=== PATIENT | female | born 1975 | race Caucasian/White ===

== ENCOUNTER 2017-02-10 19:36 | Emergency (ER) | payer OTHER ==
[~2017-02-10] VITALS: Ht 170.2 cm; Wt 113.7 kg
[~2017-02-10 19:36] MED LIST: BUPR-79 PO; CETI10TA84 PO; DICY10CA12 PO; DOXE10CA PO; IBUP-1428 PO; OXYB10TA PO; PSEU30TA20 PO
[2017-02-10 19:39] VITALS: TEMP 36.9; Ht 170.2 cm; Wt 113.7 kg
[2017-02-10] MEDS ORDERED: SODIUM CHLORIDE 0.9% 1000ML 1,000 ML IV STA (19:54)
[2017-02-10] MEDS ORDERED: ONDANSETRON INJ 2 MG/ML 2 ML VIAL IV STA (19:54)
--- NOTE | 2017-02-10 20:19 | DIAGNOSTIC IMAGING REPORT ---
CHEST ONE VIEW PORTABLE HISTORY: 41 years-old Female nausea acute nausea COMPARISON: Chest radiograph 01/05/2014 TECHNIQUE: Portable upright AP view of the chest FINDINGS: Patient is slightly rotated to the right. Cardiomediastinal and hilar silhouettes are within normal limits. No pneumothorax, pleural effusion or focal airspace consolidation. No overt pulmonary edema. Bones of the chest are grossly intact. Slight haziness in the left lung compared to the right is favored to be artifactual. Minimal subsegmental atelectasis of the left lung base. IMPRESSION: No acute cardiopulmonary process. The above report was generated using voice recognition software. It may contain grammatical, syntax or spelling errors. Electronically signed by: Kieran Dodd M.D. 02/10/2017 8:18 PM Dictated Date/Time: 02/10/2017 8:17 PM
[2017-02-10] MEDS ORDERED: MAGNTAB10 PO (20:23)
[2017-02-10] MEDS ORDERED: MONT1TAB3 PO (20:23)
[2017-02-10] MEDS ORDERED: MULT-513 PO (20:23)
[2017-02-10] MEDS ORDERED: IBUP-1428 PO (20:23)
[2017-02-10] MEDS ORDERED: ZOLM1TAB3 PO (20:23)
[2017-02-10] MEDS ORDERED: ONDA8TAB6 PO (20:23)
[2017-02-10] MEDS ORDERED: CETI10TA84 PO (20:23)
[2017-02-10] MEDS ORDERED: VNTHFA/IN INH (20:23)
[2017-02-10] MEDS ORDERED: LORA-741 PO (20:23)
[2017-02-10] MEDS ORDERED: OXYC-57 PO (20:23)
[2017-02-10] MEDS ORDERED: BIOF500C2 PO (20:23)
[2017-02-10] MEDS ORDERED: CHOL100027 PO (20:23)
[2017-02-10] MEDS ORDERED: CYAN1SUB12 PO (20:23)
[2017-02-10 20:34] LABS: BASO % 0.4 %; BASO ABS # 0.03 K/uL (0-0.2); COMPLETE YES; EOS % 0.6 %; HEMATOCRIT 36.3 % (37-47); IG% 0.3 %; LYMPH % 14.7 %; LYMPH ABS # 1.16 K/uL (1.2-3.4); MEAN CELL VOLUME 84.6 fL (80-100); MEAN CORPUSCULAR HEMOGLOBIN 29.8 pg (25-34); MEAN CORPUSCULAR HGB CONC 35.3 g/dl (32-36); MONO % 7.1 %; NEUT % 76.9 %; PLATELET COUNT 313 K/uL (130-400); RED BLOOD COUNT 4.29 M/uL (4.2-5.4); WHITE BLOOD COUNT 7.87 K/uL (4.8-10.8)
[2017-02-10 20:50] LABS: ALT/SGPT 21 U/L (12-78); BLOOD UREA NITROGEN 9 mg/dl (7-18); BUN/CREATININE RATIO 15.1 (10-20); CALCIUM 8.4 mg/dl (8.5-10.1); CARBON DIOXIDE 27 mmol/L (21-32); CHLORIDE 107 mmol/L (98-107); CREATININE 0.62 mg/dl (0.60-1.20); GLUCOSE 99 mg/dl (70-99); POTASSIUM 3.3 mmol/L (3.5-5.1); SODIUM 141 mmol/L (136-145)
[2017-02-10] MEDS ORDERED: KETOROLAC TROMETHAMINE 30 MG/ML VIAL IV STA (20:51)
[2017-02-10 20:53] LABS: ALKALINE PHOSPHATASE 72 U/L (45-117); AST/SGOT 18 U/L (15-37)
[2017-02-10] MEDS ORDERED: ONDA4TAB65 PO (21:33)
[2017-02-10 21:51] VITALS: BP 152/94; PULSE 73; O2SAT 95
[2017-02-10] MEDS ORDERED: ONDANSETRON HOME PACK 4MG OD TAB PO ONE (22:00)
--- NOTE | 2017-02-10 22:52 | EMERGENCY ROOM VISIT NOTE ---
History Report prepared by Rahul: Thuan Aguirre Under the Supervision of: Dr. German Stahl D.O. First contact with patient: 19:44 Chief Complaint: NAUSEA Stated Complaint: POST OP CHILLS,NAUSEA History of Present Illness The patient is a 41 year old female who presents to the Emergency Room with complaints of constant lightheadedness beginning one hour ago. She also complains of nausea and hot flashes. She had carpal tunnel release surgery this morning on her right elbow. The patient has had similar symptoms before in the past with anesthesia with her previous hysterectomy. She states that her right hand feels swollen. She denies any chest pain, or SOB. No vomiting. No weakness or numbness in arms or legs. No fevers of of 100.4. Patient notes she does get this way after surgery about 50% of time. Source of History: patient Onset: 1 hour ago Quality: other (lightheadedness) Timing: constant Associated Symptoms: + nausea, No chest pain, No SOB Note: Additional symptoms: hot flashes. Review of Systems See HPI for pertinent positives & negatives. A total of 10 systems reviewed and were otherwise negative. Past Medical & Surgical Surgical Problems: (1) History of cholecystectomy (2) History of hernia repair Family History No pertinent family history Social History Smoking Status: Never Smoker Alcohol Use: none Drug Use: none Marital Status: Occupation Status: unemployed Current/Historical Medications Scheduled Albuterol Hfa (Ventolin Hfa), 2 PUFFS INH Q4 Bioflavonoid Products (Vitamin C), 1 TAB PO DAILY Cholecalciferol (Vitamin D 1000 Unit), 1,000 INTER.UNIT PO DAILY Cyanocobalamin (Vitamin B-12), 2,500 MCG PO DAILY Ibuprofen (Motrin), 800 MG PO TIDM Magnesium Oxide (Mg Supplement (Mag-200), 200 MG PO DAILY Multivitamins/Minerals (Mvi With Minerals), 1 TAB PO DAILY Omeprazole (Prilosec), 20 MG PO BID Ondansetron Hcl (Zofran), 4 MG PO TID Zolmitriptan (Zomig), 5 MG PO PRN Scheduled PRN Cetirizine (Zyrtec), 10 MG PO DAILY PRN for Seasonal Allergies Lorazepam (Ativan), 0.5 MG PO Q6H PRN for Anxiety Ondansetron Hcl (Zofran), 8 MG PO TIDM PRN for Nausea Oxycodone/Acetaminophen 5MG/325MG (Percocet 5MG/325MG), 1 TABLET PO Q4H PRN for Pain Allergies Coded Allergies: Amoxicillin (Verified Allergy, Unknown, ITCHING, 01/05/14) Clavulanic Acid (Verified Allergy, Unknown, ITCHING, 01/05/14) Latex (Verified Allergy, Unknown, UNK, 01/05/14) Physical Exam Vital Signs Date Time Temp Pulse Resp B/P (MAP) Pulse Ox O2 Delivery O2 Flow Rate FiO2 02/10/17 21:51 73 16 152/94 95 02/10/17 19:39 36.9 72 18 161/96 98 Room Air Physical Exam GENERAL: Sitting up in bed, disheveled, minimal distress. EYE EXAM: normal conjunctiva. OROPHARYNX: no exudate, no erythema, lips, buccal mucosa, and tongue normal and mucous membranes are moist NECK: supple, no nuchal rigidity, no adenopathy, non-tender LUNGS: Clear to auscultation. Normal chest wall mechanics HEART: no murmurs, S1 normal and S2 normal ABDOMEN: abdomen soft, non-tender, normo-active bowel sounds, no masses, no rebound or guarding. BACK: Back is symmetrical on inspection and there is no deformity, no midline tenderness, no CVA tenderness. SKIN: no rashes and no bruising UPPER EXTREMITIES: RUE in a splint. Outside dressing/JAYDEN bandage removed. Radial pulse bounding 2/4. Able to abduct digits. Compartments are soft in the humerus and forearm. LOWER EXTREMITIES: No pitting edema. NEURO EXAM: Normal sensorium, cranial nerves II-XII grossly intact, normal speech, no gross weakness of legs. Medical Decision & Procedures ER Provider Diagnostic Interpretation: Radiology results as stated below per my review and the radiologist's interpretation: CHEST ONE VIEW PORTABLE FINDINGS: Patient is slightly rotated to the right. Cardiomediastinal and hilar silhouettes are within normal limits. No pneumothorax, pleural effusion or focal airspace consolidation. No overt pulmonary edema. Bones of the chest are grossly intact. Slight haziness in the left lung compared to the right is favored to be artifactual. Minimal subsegmental atelectasis of the left lung base. IMPRESSION: No acute cardiopulmonary process. The above report was generated using voice recognition software. It may contain grammatical, syntax or spelling errors. Electronically signed by: Kieran Dodd M.D. 02/10/2017 8:18 PM Laboratory Results 02/10/17 20:22 Red Blood Count 4.29, Mean Corpuscular Volume 84.6, Mean Corpuscular Hemoglobin 29.8, Mean Corpuscular Hemoglobin Concent 35.3, Mean Platelet Volume 10.0, Neutrophils (%) (Auto) 76.9, Lymphocytes (%) (Auto) 14.7, Monocytes (%) (Auto) 7.1, Eosinophils (%) (Auto) 0.6, Basophils (%) (Auto) 0.4, Neutrophils # (Auto) 6.05, Lymphocytes # (Auto) 1.16, Monocytes # (Auto) 0.56, Eosinophils # (Auto) 0.05, Basophils # (Auto) 0.03 02/10/17 20:22 Test 02/10/17 20:22 White Blood Count 7.87 K/uL (4.8-10.8) Red Blood Count 4.29 M/uL (4.2-5.4) Hemoglobin 12.8 g/dL (12.0-16.0) Hematocrit 36.3 % (37-47) Mean Corpuscular Volume 84.6 fL (80-100) Mean Corpuscular Hemoglobin 29.8 pg (25-34) Mean Corpuscular Hemoglobin Concent 35.3 g/dl (32-36) Platelet Count 313 K/uL (130-400) Mean Platelet Volume 10.0 fL (7.4-10.4) Neutrophils (%) (Auto) 76.9 % Lymphocytes (%) (Auto) 14.7 % Monocytes (%) (Auto) 7.1 % Eosinophils (%) (Auto) 0.6 % Basophils (%) (Auto) 0.4 % Neutrophils # (Auto) 6.05 K/uL (1.4-6.5) Lymphocytes # (Auto) 1.16 K/uL (1.2-3.4) Monocytes # (Auto) 0.56 K/uL (0.11-0.59) Eosinophils # (Auto) 0.05 K/uL (0-0.5) Basophils # (Auto) 0.03 K/uL (0-0.2) RDW Standard Deviation 38.1 fL (36.4-46.3) RDW Coefficient of Variation 12.4 % (11.5-14.5) Immature Granulocyte % (Auto) 0.3 % Immature Granulocyte # (Auto) 0.02 K/uL (0.00-0.02) Anion Gap 7.0 mmol/L (3-11) Est Creatinine Clear Calc Drug Dose 157.0 ml/min Estimated GFR () 130.7 Estimated GFR (Non- 112.8 BUN/Creatinine Ratio 15.1 (10-20) Calcium Level 8.4 mg/dl (8.5-10.1) Total Bilirubin 0.5 mg/dl (0.2-1) Direct Bilirubin < 0.1 mg/dl (0-0.2) Aspartate Amino Transf (AST/SGOT) 18 U/L (15-37) Alanine Aminotransferase (ALT/SGPT) 21 U/L (12-78) Alkaline Phosphatase 72 U/L (45-117) Total Protein 7.2 gm/dl (6.4-8.2) Albumin 3.7 gm/dl (3.4-5.0) Lipase 78 U/L (73-393) Laboratory results per my review. Medications Administered Medications (Trade) Dose Ordered Sig/Becca Route Start Time Stop Time Status Last Admin Dose Admin Sodium Chloride 1,000 ml @ 999 mls/hr Q1H1M STAT IV 02/10/17 19:54 02/10/17 20:54 DC 02/10/17 20:47 999 MLS/HR Ondansetron HCl (Zofran Inj) 4 mg NOW STAT IV 02/10/17 19:54 02/10/17 19:56 DC 02/10/17 20:48 4 MG Ketorolac Tromethamine (Toradol Inj) 30 mg NOW STAT IV 02/10/17 20:51 02/10/17 20:52 DC 02/10/17 21:03 30 MG Ondansetron HCl (ZOFRAN ODT 4MG Home Pack) 1 homepack UD ONCE PO 02/10/17 22:00 02/10/17 22:01 DC 02/10/17 22:11 1 HOMEPACK ECG Indication: nausea Rate (beats per minute): 64 Rhythm: sinus rhythm Findings: no ectopy, other (Poor baseline. Normal intervals. ) ED Course ED COURSE: Vital signs were reviewed and showed hypertension The patients medical record was reviewed The above diagnostic studies were performed and reviewed. ED treatments and interventions as stated above. 1943: The patient was evaluated in room B4B. A complete history and physical examination was performed. 1953: Ordered Zofran Inj 4 mg IV, Sodium Chloride 1000 ml @ 999 mls/hr IV. 2050: Ordered Toradol Inj 30 mg IV. 2132: Upon reevaluation, the patient is resting comfortably. I discussed my findings with the patient and she understands and agrees with the treatment plan. Based on the patients age, coexisting illnesses, exam and lab findings the decision to treat as an outpatient was made. The patient remained stable while under my care. The patient appeared well at the time of discharge. Medical Decision Differential Diagnosis includes but is not limited to dehydration, stroke, anemia, hypoglycemia, hyponatremia, hypernatremia, urinary tract infection, pneumonia, bronchitis, sepsis, gastroenteritis, additional abdominal pathology, metabolic abnormalities and infections. Patient is a 41-year-old male who presents to ER for feeling cold and hot following surgery earlier today. Patient had a carpal tunnel release. Generally after surgery about 50% patient has significant nausea and feels hot and cold. Patient is to symptoms rather similar. Overlying jayden was removed from cast. Good radial pulse. Department are soft. Patient has improvement of the tightness. This was rewrapped prior to discharge. CBC all BMP, LFTs, bilirubin and lipase is unremarkable. EKG was unremarkable. Chest x-ray was benign as well. Patient was given IV fluids and Zofran along with IV Toradol. She did feel better. She is hesitant to take any narcotics as this generally makes her sick. She was discharged follow-up with her general surgeon for postop anesthesia nausea and postop pain. Discussed with Pt concerning signs and symptoms to watch out for. Pt was instructed to follow up with their PCP and discussed with the patient their option to return to the ED at anytime for persistent or worsening symptoms. The appropriate anticipatory guidance and out- patient management, including indications for return to the emergency department , were explained at length to the patient and understood. Medication Reconcilliation Current Medication List: was personally reviewed by me Blood Pressure Screening Patient's blood pressure: Elevated blood pressure Blood pressure disposition: Referred to PCP Impression Primary Impression: Postoperative pain of extremity Additional Impression: Nausea after anesthesia Scribe Attestation The scribe's documentation has been prepared under my direction and personally reviewed by me in its entirety. I confirm that the note above accurately reflects all work, treatment, procedures, and medical decision making performed by me. Departure Information Dispostion Home / Self-Care Prescriptions Ondansetron Hcl (ZOFRAN) 4 Mg Tab 4 MG PO TID for Nausea, #20 TAB Prov: German Stahl, DO 02/10/17 Referrals Franky Hooks M.D. (PCP) Forms HOME CARE DOCUMENTATION FORM, IMPORTANT VISIT INFORMATION Patient Instructions ED Nausea Vomiting, My [facility] Additional Instructions Please follow up with your primary care doctor/or your surgeon with in the next 24 hours. Any worsening of your symptoms, please return to the ED immediately. This includes any fevers greater than 100.4, worsening pain, chest pain, shortness breath, persistent nausea, vomiting, unable to eat or drink, or any other concerning signs or symptoms from your standpoint. Any tingling or numbness in your arm, or severe worsening of the pain please unwrap the splint and take it off and call your on-call surgeon. This takes Zofran as needed for nausea. Problem Qualifiers Additional Impression: Nausea after anesthesia Encounter type: initial encounter Qualified Codes: T88.59XA - Other complications of anesthesia, initial encounter; R11.0 - Nausea
[2017-02-10] MEDS ORDERED: PRLSR20 PO (23:26)
== END 2017-02-10 21:52 | disposition home or self-care (01) ==
LOC: C.EDB 19:38
DX: T88.59XA Other complications of anesthesia, initial encounter (principal); T41.205A Adverse effect of unspecified general anesthetics, initial encounter; R11.0 Nausea; Y83.8 Other surgical procedures as the cause of abnormal reaction of the patient, or of later complication, without mention of misadventure at the time of the procedure; G89.18 Other acute postprocedural pain; R03.0 Elevated blood-pressure reading, without diagnosis of hypertension; Z79.1 Long term (current) use of non-steroidal anti-inflammatories (NSAID)

== ENCOUNTER 2022-05-12 17:07 | Observation (INO) ==
[2022-05-12 18:29] LABS: Basophils # (auto) 0.06 K/uL (0-0.2); Basophils % (auto) 0.8 %; Eosinophils # (auto) 0.08 K/uL (0-0.50); Eosinophils % (auto) 1.1 %; Hematocrit (blood only) 37.3 % (34.1-44.9); Immature Granulocytes # (auto) 0.06 K/uL (0.00-0.02); Immature Granulocytes % (auto) 0.8 %; Lymphocytes # (auto) 1.15 K/uL (1.2-3.4); Lymphocytes % (auto) 15.8 %; Mean Corpuscular Hgb Conc 34.9 g/dL (32.0-36.0); Mean Corpuscular Volume 86.1 fL (80.0-100.0); Monocytes # (auto) 0.56 K/uL (0.24-0.82); Monocytes % (auto) 7.7 %; Neutrophils # (auto) 5.39 K/uL (1.4-6.5); Neutrophils % (auto) 73.8 %; Platelet Count 328 K/uL (130-400); RDW Coefficient of Variation 11.4 % (11.5-14.5); RDW Standard Deviation 35.8 fL (36.4-46.3); Red Blood Count 4.33 M/uL (3.93-5.22)
[2022-05-12 18:38] LABS: Albumin Globulin Ratio 1.6 (0.9-2); Albumin Level 4.3 gm/dl (3.4-5.0); BUN Creatinine Ratio 21.1 (10-20); Bilirubin,Total 0.6 mg/dl (0.2-1.0); Calcium 9.7 mg/dl (8.5-10.1); Creatinine Clr Calc Pharmacy 129.6 ml/min; Est GFR (African American) 118.4 ml/min; Est GFR (Non-African American) 102.1 ml/min; Globulin 2.7 gm/dl (2.5-4.0); Potassium 3.2 mmol/L (3.5-5.1)
[2022-05-12 18:44] LABS: Troponin I High Sensitivity 3.3 pg/ml (0-14)
--- NOTE | 2022-05-12 20:04 | XRay Report ---
XR chest 1V portable CLINICAL HISTORY: Chest pain, nonspecific TECHNIQUE: Single frontal radiograph of the chest was obtained. Comparison: Comparison is made to chest radiograph 02/10/2017 FINDINGS: No lines and tubes are seen. The cardiomediastinal silhouette is normal. The lungs are clear. No evid ence of pleural effusion or pneumothorax. IMPRESSION: No acute chest disease. ACT 112: Negative or not required by law. Electronically signed by: Jacob Gold M.D. 05/12/2022 8:03 PM
--- NOTE | 2022-05-12 23:09 | Emergency Department Note ---
History of Present Illness General Chief Complaint: Cardiac Assessment Stated Complaint: CHEST PAIN, PAIN NECK/SHOULDER Time Seen by Provider: 05/12/22 21:07 History of Present Illness Provider Complaint: chest pain Time: 09:00 Duration: intermittent Onset: during rest Pain Location: substernal Pain Radiation: LUE, neck and jaw/teeth Severity: moderate Maximum Pain Intensity: 6 Current Pain Intensity: 2 Quality: + dull Relieved By: + nothing Exacerbated By: + nothing Context: no recent illness, no recent surgery, no recent immobilization, no recent travel, no trauma/injury, no new medications or no history of DVT/PE Associated symptoms: + dyspnea; no nausea, no vomiting, no diaphoresis, no syncope, no palpitations, no fever, no cough or no leg swelling Home Medications Medication Instructions Recorded Confirmed Type albuterol sulfate 90 mcg/actuation 1 inh inhalation QID PRN short of 03/06/22 03/11/22 History aerosol inhaler breath famotidine 20 mg tablet 20 mg PO BID 03/06/22 03/11/22 History hydrochlorothiazide 12.5 mg capsule 12.5 mg PO QAM 03/06/22 03/11/22 History losartan 100 mg tablet 100 mg PO HS 03/06/22 03/11/22 History pantoprazole 20 mg tablet,delayed 20 mg PO BID 03/06/22 03/11/22 History release Allergies Allergy/AdvReac Type Severity Reaction Status Date / Time clavulanic acid Allergy Intermediate ITCHING Verified 03/11/22 09:02 latex Allergy Intermediate rash all Verified 03/11/22 09:02 over body amoxicillin Allergy Mild stomach Verified 03/11/22 09:02 problems/slight itching oxycodone Allergy Mild stomach Verified 03/11/22 09:02 problems Past Med/Surg History Medical History Anxiety and depression Arthritis RT KNEE Cardiac murmur no current cards Elevated cholesterol "slight" GERD (gastroesophageal reflux disease) History of COVID-19 04/2021>still some loss of smell Hypertension IBS (irritable bowel syndrome) Low iron iron infusions in past Migraine SOB (shortness of breath) on exertion REASON FOR INHALER Stomach ulcer Stress incontinence Surgical History H/O arthroscopic knee surgery RT H/O hernia repair History of cholecystectomy History of colonoscopy History of esophagogastroduodenoscopy (EGD) History of hysterectomy History of tooth extraction Nausea and vomiting after administration of anesthetic agent Family History Other No family history of adverse response to anesthesia Social History Smoking Status: Never smoker Second Hand Exposure: No; Hx Alcohol Use: No Preferred Language: [place] [employer] Resources Manager Required: No Beliefs That Will Affect Care: None Current Living Situation: Family Current Living Situation Comment: DAUGHTER AND Feels Safe at Home: Yes Assistive Devices: None Physical Exam Vital Signs Vital Signs - 24 hr 05/12/22 17:34 05/12/22 21:16 05/12/22 21:24 Temperature 37.0 C Temperature Source Temporal Artery Scan Pulse Rate 69 63 Pulse Rate [Apical] 68 Pulse Rate from SpO2 Sensor Pulse Rhythm Regular Pulse Rhythm [Apical] Regular Pulse Strength [Apical] Normal Respiratory Rate 19 16 18 Respiratory Effort / Characteristics Non-Labored Respiratory Depth Normal Respiratory Pattern Regular Blood Pressure 168/110 H Blood Pressure [Right Arm] 163/83 H Blood Pressure Mean 129 Blood Pressure Mean [Right Arm] 109 Pulse Oximetry 98 98 100 Oxygen Delivery Method Room Air Room Air Room Air Sepsis Recent Fever Within 48 Hours No Sepsis New/Unexplained Change in Mental Status No Sepsis Action Taken by Nursing No Action Required 05/12/22 21:26 05/12/22 22:30 Temperature Temperature Source Pulse Rate 62 Pulse Rate [Apical] Pulse Rate from SpO2 Sensor 63 Pulse Rhythm Pulse Rhythm [Apical] Pulse Strength [Apical] Respiratory Rate 13 Respiratory Effort / Characteristics Respiratory Depth Respiratory Pattern Blood Pressure 153/83 H Blood Pressure [Right Arm] Blood Pressure Mean 106 Blood Pressure Mean [Right Arm] Pulse Oximetry 100 99 Oxygen Delivery Method Room Air Sepsis Recent Fever Within 48 Hours Sepsis New/Unexplained Change in Mental Status Sepsis Action Taken by Nursing Physical Exam GENERAL: She is oriented to person, place, and time. She appears well-developed and well-nourished. She does not appear distressed. HENT: Exam performed. -Head: Normocephalic and atraumatic. -Right Ear: External ear normal. No mastoid tenderness. -Left Ear: External ear normal. No mastoid tenderness. -Mouth/Throat: The oropharynx is clear and moist. No trismus in the jaw. No dental abscesses or uvula swelling. No oropharyngeal exudate or tonsillar abscesses. EYES: Conjunctivae and EOM are normal. Pupils are equal, round, and reactive to light. Right eye exhibits no discharge. Left eye exhibits no discharge. No scleral icterus. NECK: Normal range of motion. Neck supple. No JVD present. CV: Normal rate, regular rhythm, normal heart sounds and intact distal pulses. There is no peripheral edema. Palpable radial pulses bue. PULM/CHEST: Effort normal and breath sounds normal. No respiratory distress. No stridor. She has no wheezes. She has no rales. -Chest Wall: She exhibits no tenderness. ABD: The abdomen is soft and obese. Bowel sounds are normal. She has no distensi on. No mass is present. There is no tenderness. There is no rebound, no guarding, no Hameed's sign and no tenderness at McBurney's point. Rovsig negative MUSC/SKEL: Normal range of motion. There is no peripheral edema, tenderness or deformity. LYMPH: No cervical adenopathy. NEURO: She is alert and oriented to person, place, and time. She has normal strength. No cranial nerve deficit or sensory deficit. Coordination and gait normal. GCS eye subscore is 4. GCS verbal subscore is 5. GCS motor subscore is 6. Cerebellar tests wnl. SKIN: Skin is warm and dry. She is not diaphoretic. PSYCH: She has a normal mood and affect. Behavior is normal. Judgment and thought content normal. Course Course 2106: The patient was evaluated in room B6. A complete history and physical exam was performed Cardiac monitoring: An order was placed for continuous cardiac monitoring. The monitor shows a rate of 60 with sinus rhythm 2255: Vital signs stable. Labs and imaging within normal limits patient was offered inpatient observation versus outpatient cardiology stress test follow- up. Patient elected to have inpatient observation for cardiology evaluation. [facility] Medical Decision Making Laboratory Data Attestation: I reviewed the patient's lab results. 05/12/22 17:58 05/12/22 17:58 Labs: Lab Results 05/12/22 05/12/22 05/12/22 Range/Units 17:58 17:58 21:25 WBC 7.30 (4.8-10.8) K/ul RBC 4.33 (3.93-5.22) M/uL Hgb 13.0 (12.0-16.0) g/dl Hct 37.3 (34.1-44.9) % MCV 86.1 (80.0-100.0) fL MCH 30.0 (25.0-34.0) pg MCHC 34.9 (32.0-36.0) g/dL RDW Std Deviation 35.8 L (36.4-46.3) fL RDW Coeff of Krystina 11.4 L (11.5-14.5) % Plt Count 328 (130-400) K/uL MPV 10.0 (9.4-12.3) fL Immature Gran % (Auto) 0.8 % Neut % (Auto) 73.8 % Lymph % (Auto) 15.8 % [place] % (Auto) 7.7 % Eos % (Auto) 1.1 % Baso % (Auto) 0.8 % Neut # (Auto) 5.39 (1.4-6.5) K/uL Lymph # (Auto) 1.15 L (1.2-3.4) K/uL [place] # (Auto) 0.56 (0.24-0.82) K/uL Eos # (Auto) 0.08 (0-0.50) K/uL Baso # (Auto) 0.06 (0-0.2) K/uL Immature Gran # (Auto) 0.06 H (0.00-0.02) K/uL Sodium 141 (136-145) mmol/L Potassium 3.2 L (3.5-5.1) mmol/L Chloride 105 (98-107) mmol/L Carbon Dioxide 30 (21-32) mmol/L Anion Gap 6 (3-11) BUN 15 (6-23) mg/dl Creatinine 0.71 (0.6-1.2) mg/dl Est Cr Clr Drug Dosing 129.6 ml/min Est GFR ( Amer) 118.4 ml/min Est GFR (Non-Af Amer) 102.1 ml/min BUN/Creatinine Ratio 21.1 H (10-20) Glucose 127 H (70-99(Fasting)) mg/dl Calcium 9.7 (8.5-10.1) mg/dl Total Bilirubin 0.6 (0.2-1.0) mg/dl AST 17 (13-39) U/L ALT 15 (7-52) U/L Alkaline Phosphatase 66 (34-104) U/L Troponin I High Sens 3.3 3.9 (0-14) pg/ml Total Protein 7.0 (6.0-8.3) gm/dl Albumin 4.3 (3.4-5.0) gm/dl Globulin 2.7 (2.5-4.0) gm/dl Albumin/Globulin Ratio 1.6 (0.9-2) Lipase 14 (11-82) U/L Imaging Data Chest x-ray: Radiologist's impression: Chest X-Ray 05/12/22 17:40 XR chest 1V portable CLINICAL HISTORY: Chest pain, nonspecific TECHNIQUE: Single frontal radiograph of the chest was obtained. Comparison: Comparison is made to chest radiograph 02/10/2017 FINDINGS: No lines and tubes are seen. The cardiomediastinal silhouette is normal. The lungs are clear. No evidence of pleural effusion or pneumothorax. IMPRESSION: No acute chest disease. ACT 112: Negative or not required by law. Electronically signed by: Jacob Gold M.D. 05/12/2022 8:03 PM ECG Data Attestation: I personally reviewed and interpreted this ECG as follows: Indication: chest pain Rate (beats per minute): 63 Rhythm: normal sinus Findings: no ST depression, no ST elevation or no prolonged QT MDM Narrative Vital signs stable. Labs and imaging within normal limits patient was offered inpatient observation versus outpatient cardiology stress test follow-up. Patient elected to have inpatient observation for cardiology evaluation. Patient will be admitted to [facility] hospitalist team Dr. Marin Impression & Plan Chest pain Discharge Plan Visit Data Chief Complaint: Cardiac Assessment Stated Complaint: CHEST PAIN, PAIN NECK/SHOULDER ED Provider: Wally Ge Discharge Problem: Chest pain Patient Disposition: Being Evaluated by Hospitalist Forms Stand Alone Forms: My [facility] Prescriptions Prescriptions: No Action pantoprazole 20 mg Tablet,Delayed Release (Dr/Ec) 20 mg PO BID famotidine 20 mg Tablet 20 mg PO BID hydrochlorothiazide 12.5 mg Capsule 12.5 mg PO QAM losartan 100 mg Tablet 100 mg PO HS albuterol sulfate 90 mcg/actuation Hfa Aerosol Inhaler 1 inh INHALATION QID PRN (Reason: short of breath) Referrals Referrals: Franky Hooks MD [Primary Care Provider] -
[2022-05-13] MEDS ORDERED: ASPIRIN 81 MG CHEW PO STA (01:11)
[2022-05-13] MEDS ORDERED: NITROGLYCERIN SL 0.4 MG/TAB TAB SL STA (01:11)
[2022-05-13] MEDS ORDERED: ACETAMINOPHEN 325 MG TAB PO STA (01:11)
[2022-05-13] MEDS ORDERED: POTASSIUM CHLORIDE CRTAB 20 MEQ TABCR PO STA (02:00)
[2022-05-13] MEDS ORDERED: ALBUTEROL HFA 8 GM INHALER INH PRN (03:45)
[2022-05-13] MEDS ORDERED: NITROGLYCERIN SL 0.4 MG/TAB TAB SL PRN (03:45)
[2022-05-13] MEDS ORDERED: POLYETHYLENE (MIRALAX) 17 GM PACK PO PRN (03:45)
[2022-05-13] MEDS ORDERED: KETOCONAZOLE 2% CR 15 GM TUBE EXT PRN (03:45)
[2022-05-13] MEDS ORDERED: AZELASTINE HCL 0.1% NASAL 200 SPRAYS/27,400 MCG BTL PRN (03:45)
[2022-05-13] MEDS ORDERED: DICYCLOMINE HCL 10 MG CAP PO PRN (03:45)
[2022-05-13] MEDS ORDERED: diphenhydrAMINE Capsule 25 MG CAP PO PRN (03:45)
[2022-05-13] MEDS ORDERED: ZOLMITRIPTAN 5 MG PO PRN (03:45)
[2022-05-13 06:16] LABS: Basophils # (auto) 0.06 K/uL (0-0.2); Basophils % (auto) 0.8 %; Eosinophils # (auto) 0.14 K/uL (0-0.50); Eosinophils % (auto) 1.8 %; Hemoglobin 12.2 g/dl (12.0-16.0); Immature Granulocytes # (auto) 0.06 K/uL (0.00-0.02); Immature Granulocytes % (auto) 0.8 %; Lymphocytes # (auto) 1.14 K/uL (1.2-3.4); Lymphocytes % (auto) 14.5 %; Mean Corpuscular Hemoglobin 29.8 pg (25.0-34.0); Mean Corpuscular Hgb Conc 34.9 g/dL (32.0-36.0); Mean Corpuscular Volume 85.4 fL (80.0-100.0); Mean Platelet Volume 10.3 fL (9.4-12.3); Monocytes % (auto) 10.2 %; Neutrophils # (auto) 5.64 K/uL (1.4-6.5); Neutrophils % (auto) 71.9 %; Platelet Count 316 K/uL (130-400); RDW Coefficient of Variation 11.5 % (11.5-14.5); RDW Standard Deviation 35.5 fL (36.4-46.3); White Blood Count 7.84 K/ul (4.8-10.8)
[2022-05-13 06:33] LABS: BUN Creatinine Ratio 22.5 (10-20); Calcium 9.3 mg/dl (8.5-10.1); Creatinine Clr Calc Pharmacy 129.5 ml/min; Est GFR (African American) 118.4 ml/min; Est GFR (Non-African American) 102.1 ml/min; Magnesium 1.9 mg/dl (1.7-2.4); Potassium 3.5 mmol/L (3.5-5.1)
[2022-05-13 06:39] LABS: Troponin I High Sensitivity 2.8 pg/ml (0-14)
[2022-05-13] MEDS: ACETAMINOPHEN 325 MG TAB PO PRN ×2 (07:40→12:29)
--- NOTE | 2022-05-13 07:53 | History and Physical Report ---
DATE OF ADMISSION: 05/13/2022. CHIEF COMPLAINT: Chest pain. HISTORY OF PRESENT ILLNESS: A 47-year-old female with past medical history significant for dyspnea on exertion, recurrent sinusitis, history of hypertension, morbid obesity, irritable bowel syndrome, female stress incontinence, history of right lower quadrant abdominal pain, iron deficiency anemia, obsessive compulsive disorder, depression, history of COVID-19, presents with chest pain. The patient says since yesterday morning, she is having chest pain in the left side of the chest radiating to the back and left shoulder and arm, dull aching pain 6/10 in severity. No nausea, somewhat dizziness. No shortness of breath, no cough, no fever, no chills, no blurred visions, no earache, no runny nose. Currently, has some mild headache. No abdominal pain. Normal bladder and bowel movements. Resting comfortably and hemodynamically stable. Also has what looks like a chronic abdominal discomfort. ALLERGIES: AMOXICILLIN, CLAVULANIC ACID, LATEX, OXYCODONE. PAST MEDICAL HISTORY: As mentioned above. PAST SURGICAL HISTORY: Carpal tunnel surgery, colonoscopy, EGD, ganglion cyst, right knee arthroscopy, laparoscopic cholecystectomy, left ankle surgery, inguinal hernia repair, revision of the ulnar nerve at the right elbow, total abdominal hysterectomy with removal of tubes. MEDICATIONS: The patient is on Tylenol 500 mg p.o. q.i.d. p.r.n., albuterol 1 puff inhalation q.i.d. p.r.n., azelastine 2 sprays intranasal b.i.d. p.r.n., Zyrtec 10 mg p.o. daily, Voltaren 4 g topical q.i.d., dicyclomine 10 mg p.o. a.c. and at bedtime p.r.n., Benadryl 25 mg p.o. q.i.d. p.r.n., famotidine 20 mg p.o. b.i.d., Flonase 2 sprays intranasal daily, hydrochlorothiazide 12.5 mg p.o. daily, losartan 100 mg p.o. daily, multivitamins 1 tablet p.o. daily, Protonix 40 mg p.o. b.i.d., zolmitriptan 5 mg p.o. p.r.n. FAMILY HISTORY: Significant for son has asthma, paternal grandmother has breast cancer; mother has cancer. Son has chronic hives. Maternal grandfather has diabetes; paternal grandfather has diabetes. SOCIAL HISTORY: , no smoking, alcohol rare, no drug use. REVIEW OF SYSTEMS: As per HPI. Rest of the review of systems is negative. PHYSICAL EXAMINATION: GENERAL: The patient is obese, not in acute distress. VITAL SIGNS: Temperature 37, pulse 66, respiratory rate 21, blood pressure 144/74, oxygen 98%. HEENT: Pupils equal, round and reactive to light. Oral mucosa moist. NECK: No JVD. No neck masses. CARDIOVASCULAR: S1 and S2 heard. Regular rate and rhythm. No murmur, no gallop. RESPIRATORY SYSTEM: Normal AP diameter. No accessory muscle use. No wheezing, crackles. ABDOMEN: Soft, bowel sounds present. Mild discomfort in periumbilical region. No guarding, no rigidity, no distention. CENTRAL NERVOUS SYSTEM: Cranial nerves II-XII grossly intact, nonfocal. EXTREMITIES: No edema, no erythema. LABORATORY DATA: WBC 7.3, hemoglobin 13, hematocrit 37.3, platelets 328. Sodium 141, potassium 3.2, chloride 105, bicarbonate 30, BUN 15, creatinine 0.7, serum glucose 127, calcium 9.7, total bilirubin 0.6, AST 17, ALT 15, alkaline phosphatase 66. Troponin I high sensitivity 3.9, lipase 14, SARS-CoV-2 rapid test negative. IMAGING DATA: Chest x-ray, no active disease in the chest. EKG: Normal sinus rhythm at a rate of 63, nonspecific T-wave abnormalities. ASSESSMENT AND PLAN: This is a 47-year-old female who presents with chest pain. 1. Chest pain, risk factors obesity, hypertension. Initial workup was negative. Follow serial cardiac enzymes, echocardiogram. We will keep n.p.o. Consult Cardiology in the a.m. for further recommendations. 2. History of hypertension. Continue her home medication of hydrochlorothiazide and losartan. We will monitor the blood pressure. 3. Gastroesophageal reflux disease. Continue omeprazole. 4. Irritable bowel syndrome, on dicyclomine p.r.n. 5. Obesity. Needs counseling. 6. Deep venous thrombosis prophylaxis. Sequential compression devices. DISPOSITION: Closely monitor in the med tele. PT/OT prior to discharge. Social service to help with discharge planning. Job ID: [id number] ARI
[2022-05-13] MEDS ORDERED: [UNRECOGNIZED DRUG - REMARK] SCH (08:00)
[2022-05-13] MEDS ORDERED: PANTOprazole 40 MG TAB PO SCH (09:00)
[2022-05-13] MEDS ORDERED: CETIRIZINE HCL 10 MG TABLET PO SCH (09:00)
[2022-05-13] MEDS ORDERED: MULTIVITAMIN TAB PO SCH (09:00)
[2022-05-13] MEDS ORDERED: ASPIRIN 81 MG ECTAB PO SCH (09:00)
[2022-05-13] MEDS ORDERED: FAMOTIDINE 20 MG TAB PO SCH (09:00)
[2022-05-13] MEDS ORDERED: LOSARTAN POTASSIUM 50 MG TAB PO SCH (09:00)
[2022-05-13] MEDS ORDERED: hydroCHLOROthiazide 25 MG TAB PO SCH (09:00)
[2022-05-13] MEDS ORDERED: FLUTICASONE PROPIONATE NA SPR 16 GM BTL SCH (09:00)
--- NOTE | 2022-05-13 12:43 | Cardiology Consultation ---
Date of Consultation May 13, 2022 Assessment & Plan (1) Chest pain: (2) Hypertension: (3) Abnormal EKG: Plan Chest pain. Atypical - at rest, reproducible with palpation of the chest pain. High sensitivity troponin I negative x 3. EKG with nonspecific changes. Resting echocardiography with preserved LV systolic function, without wall motion abnormality, mild aortic and tricuspid insufficiency. General measures advised. Given atypical chest discomfort, nonspecific EKG findings, and risk factors, recommend referral for Cardiac CT with FFR if indicated. Blood pressure elevated on presentation (168/110), normotensive now with last BP reading of 120/68. Supplemental potassium has corrected the hypokalemia observed on presentation; recommend maintaining normokalemia with supplemental potassium, considering the addition of spironolactone if blood pressure remains elevated down the road. Aggressive risk factor and lifestyle modification reviewed. Further recommendations pending the above, evaluation by Dr. Wilson, and patient's hospital course. Supervising Physician Co-Signing Physician Notes I have reviewed the medical record and examined the patient. I discussed the case with Mr. Pratt. This patient has chest wall pain that is reproducible with palpation as well as deep inspiration. Everything thus far is negative. I would not recommend at this time a cardiac CT angio unless the patient's chest pain changes or does not resolve with treatments. I would recommend that she take ibuprofen on a as needed basis for the discomfort for a few days. She can be discharged in the hospital from our standpoint and follow-up with her PCP. History of Present Illness Reason for Consultation: Chest pain Requesting Physician: Tania Attending Physician: Julissa History of Present Illness Cardiology Consultation Requesting Provider: Dr. Scot Marin Reason for Consultation: Chest pain Patient evaluated around 9:30 AM. EMR down at the time of evaluation. Note typed circa 12:30 PM. History of Present Illness: Vera Hwang is a 47-year-old female who is being seen today for evaluation of chest discomfort. The patient describes experiencing chest discomfort yesterday, May 12, 2022, starting at 9:00 AM while at work. She describes the discomfort as sharp, substernal, radiating into the left chest, creeping into the left shoulder and back and into the left side of the neck. The discomfort was aggravated by certain movements of the left upper extremity and by palpation. She notes that the ultrasound this morning really aggravated the discomfort. Notes Tylenol seem to dull the discomfort a little bit. Notes having to go slower work and possibly feeling a little more out of breath. The discomfort remain constant, ultimately presenting to the ER around 4:00 PM. EKG on presentation revealed normal sinus rhythm at 63 bpm with nonspecific changes anteriorly. High sensitivity troponin I negative x3 at 3.3, 3.9, and 2.8 pg/mL. Chest x-ray showed no active disease in the chest. Resting echocardiography performed in the morning of May 13, 2022 revealed normal LV systolic function without wall motion abnormality. Mild aortic and tricuspid regurgitation observed. Continuous telemetry monitoring has revealed sinus rhythm/sinus bradycardia with heart rates predominantly in the 60s. Past Medical and Surgical History: Hypertension Obesity Iron deficiency anemia Obsessive-compulsive disorder Depression Recurrent sinusitis Irritable bowel syndrome Female stress incontinence Anal fissure Carpal tunnel status post surgery Inguinal hernia status post repair Migraine headaches Status post right knee arthroscopically Status post right ulnar nerve surgery Hysterectomy Cholecystectomy Left ankle surgery Family History: Father is alive with diabetes. Mother's history is unknown. Brother without CAD. Paternal grandmother with a CVA. Paternal grandfather with diabetes, without CAD Social History: Nonsmoker. No alcohol. No illegal drug use. 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 . Three children. Complete Review of Systems: Constitutional: No change in weight. No fevers, sweats, or chills. Mouth: Poor dentition. [place] [facility] [place] HEENT: Migraine headaches, had one yesterday. No amaurosis fugax. Pulmonary: No history of asthma, COPD, or emphysema. Cardiac: Previously evaluated by Cardiology in [place], evaluation of dyspnea on exertion, negative Lexiscan nuclear stress testing in December 2018. GI/Abd: See above. Notes previously needing her esophagus stretched. No melana or hematochezia. Denies liver or kidney problems. Vascular: Denies history of claudication, AAA, or carotid artery disease. Hematologic: No coagulation disorder, anemia, or abnormal bleeding. Musculoskeletal: See above. Skin: No rash. Neurologic: No history of TIA, CVA, or seizure. Female : See above. Endocrine: No DM or thyroid problems. Complete Review of Systems is as stated above, negative, or noncontributory. Allergies Allergy/AdvReac Type Severity Reaction Status Date / Time clavulanic acid Allergy Intermediate ITCHING Verified 05/13/22 00:15 latex Allergy Intermediate rash all Verified 05/13/22 00:15 over body amoxicillin Allergy Mild stomach Verified 05/13/22 00:15 problems/slight itching oxycodone Allergy Mild stomach Verified 05/13/22 00:15 problems Home Medications Medication Instructions Recorded Confirmed Type albuterol sulfate 90 mcg/actuation 1 inh inhalation QID PRN short of 03/06/22 05/13/22 History aerosol inhaler breath famotidine 20 mg tablet 20 mg PO BID 03/06/22 05/13/22 History hydrochlorothiazide 12.5 mg capsule 12.5 mg PO QAM 03/06/22 05/13/22 History losartan 100 mg tablet 100 mg PO QAM 03/06/22 05/13/22 History acetaminophen 500 mg tablet 500 mg PO QID PRN Fever Or Pain 05/13/22 05/13/22 History ascorbic acid (vitamin C) 100 mg 0 mg PO DAILY 05/13/22 05/13/22 History tablet azelastine 137 mcg (0.1 %) nasal 2 spray intranasal BID PRN 05/13/22 05/13/22 History spray aerosol Congestion cetirizine 10 mg tablet (Zyrtec) 10 mg PO DAILY 05/13/22 05/13/22 History diclofenac sodium 1 % topical gel 4 g topical QID 05/13/22 05/13/22 History dicyclomine 10 mg capsule 10 mg PO ACHS PRN Cramps 05/13/22 05/13/22 History diphenhydramine HCl 25 mg tablet 25 mg PO QID PRN Itching 05/13/22 05/13/22 History fluticasone propionate 50 2 spray intranasal DAILY 05/13/22 05/13/22 History mcg/actuation nasal spray,suspension ketoconazole 2 % topical cream 1 applic topical BID PRN .breast 05/13/22 05/13/22 History rash metronidazole 1 % topical gel 1 applic topical BID PRN Skin 05/13/22 05/13/22 History (Metrogel) Irritation multivitamin 1 tab PO DAILY 05/13/22 05/13/22 History ondansetron 8 mg disintegrating 8 mg PO Q8H PRN Nausea 05/13/22 05/13/22 History tablet pantoprazole 40 mg tablet,delayed 40 mg PO BID 05/13/22 05/13/22 History release triamcinolone acetonide 0.1 % 1 applic topical BID PRN Skin 05/13/22 05/13/22 History topical cream Irritation zolmitriptan 5 mg tablet (Zomig) 5 mg PO UD PRN Migraine Headache 05/13/22 05/13/22 History Patient History Medical History Anxiety and depression Arthritis RT KNEE Cardiac murmur no current cards Elevated cholesterol "slight" GERD (gastroesophageal reflux disease) History of COVID-19 04/2021>still some loss of smell Hypertension IBS (irritable bowel syndrome) Low iron iron infusions in past Migraine SOB (shortness of breath) on exertion REASON FOR INHALER Stomach ulcer Stress incontinence Surgical History H/O arthroscopic knee surgery RT H/O hernia repair History of cholecystectomy History of colonoscopy History of esophagogastroduodenoscopy (EGD) History of hysterectomy History of tooth extraction Nausea and vomiting after administration of anesthetic agent Family History Other No family history of adverse response to anesthesia Social History Smoking Status: Never smoker Second Hand Exposure: No; Hx Alcohol Use: No Hx Substance Use: No Preferred Language: Sami [employer] Ssis Developer Required: No Beliefs That Will Affect Care: None Current Living Situation: Family Current Living Situation Comment: DAUGHTER AND Feels Safe at Home: Yes Safety Concerns: Feels Safe At This Time Assistive Devices: None Physical Exam Physical Exam: General: A&Ox3. NAD. Elevated BMI. Mouth: Poor dentition. HENT: Normocephalic. Atraumatic. Eyes: PER. Conjunctiva pink, sclera clear. Neck: No carotid bruits. No JVD. Chest: Reproducible chest wall discomfort. Heart: RRR. Soft diastolic murmur. Soft systolic ejection murmur. No rub. No gallop. Lungs: Clear to auscultation. Abdomen: +BS. Soft. Nontender. No masses or organomegaly. Extremities: No clubbing, cyanosis, or edema. Limited neurological examination is without focal deficits. Pulses: radial=2/4, posterior tibial=2/4. Results & Data ([facility]) Vital Signs (Past 12 Hours) Vital Signs Temp Pulse Pulse Resp BP BP BP 05/13/22 11:28 57 L 18 120/68 05/13/22 07:57 37.1 C 58 L 18 133/74 05/13/22 03:41 71 05/13/22 04:21 61 18 137/78 05/13/22 02:30 68 18 05/13/22 02:00 91 H 18 135/77 05/13/22 01:00 79 14 155/90 H Pulse Ox O2 Del Method 05/13/22 11:28 95 Room Air 05/13/22 07:57 98 Room Air 05/13/22 03:41 05/13/22 04:21 96 Room Air 05/13/22 02:30 94 05/13/22 02:00 93 05/13/22 01:00 98 Laboratory Results Cardiac Enzymes 05/12/22 05/12/22 05/13/22 Range/Units 17:58 21:25 05:28 AST 17 (13-39) U/L Troponin I High Sens 3.3 3.9 2.8 (0-14) pg/ml CBC 05/12/22 05/13/22 Range/Units 17:58 05:28 WBC 7.30 7.84 (4.8-10.8) K/ul RBC 4.33 4.10 (3.93-5.22) M/uL Hgb 13.0 12.2 (12.0-16.0) g/dl Hct 37.3 35.0 (34.1-44.9) % Plt Count 328 316 (130-400) K/uL Neut # (Auto) 5.39 5.64 (1.4-6.5) K/uL Lymph # (Auto) 1.15 L 1.14 L (1.2-3.4) K/uL [place]o # (Auto) 0.56 0.80 (0.24-0.82) K/uL Eos # (Auto) 0.08 0.14 (0-0.50) K/uL Baso # (Auto) 0.06 0.06 (0-0.2) K/uL Comprehensive Metabolic Panel 05/12/22 05/13/22 Range/Units 17:58 05:28 Sodium 141 141 (136-145) mmol/L Potassium 3.2 L 3.5 (3.5-5.1) mmol/L Chloride 105 106 (98-107) mmol/L Carbon Dioxide 30 29 (21-32) mmol/L BUN 15 16 (6-23) mg/dl Creatinine 0.71 0.71 (0.6-1.2) mg/dl Glucose 127 H 104 H (70-99(Fasting)) mg/dl Calcium 9.7 9.3 (8.5-10.1) mg/dl AST 17 (13-39) U/L ALT 15 (7-52) U/L Alkaline Phosphatase 66 (34-104) U/L Total Protein 7.0 (6.0-8.3) gm/dl Albumin 4.3 (3.4-5.0) gm/dl Intake and Output 05/12/22 05/13/22 05/13/22 22:59 06:59 14:59 Other: Other Intake Source npo Weight 114.9 kg 114.7 kg Weight Measurement Method [facility] Diagnostic Findings May 13, 2022 TTE interpretation summary ([facility], Dr. Wilson): The left ventricle is normal in size. Left ventricular systolic function is normal. Ejection fraction 60 to 65%. Normal RV systolic function. Normal left atrial size. Normal right atrial size. Normal LV wall motion. Mild aortic regurgitation. Mild tricuspid regurgitation. Telemetry: As above (1) Chest pain Chest pain type: unspecified Qualified Code(s): R07.9 - Chest pain, unspecified
--- NOTE | 2022-05-13 13:04 | Hospitalist Progress Note ---
Date of Service May 13, 2022 Assessment & Plan (1) Chest pain: Plan: Patient is a 47 yr female who presents with Atypical chest pain Atypical Chest Pain DD: Pleuritic/musculoskeletal in origin -High-sensitivity troponin X3: Negative -CXR:No acute chest disease. -ECHO: Left ventricle is normal in size. Left ventricle systolic function is normal. EF 60 to 65%. Right ventricle systolic function is normal. Left atrial size is normal. Right atrial size is normal. Left ventricle wall motion is normal. Mild aortic regurgitation. Mild Tricuspid regurgitation -May need Cardiac CT with FFR as outpatient -Appreciate Cardiology Input Hypokalemia Replete electrolytes as needed . Hypertension Continue HCTZ, losartan GERD Continue PPI, pepcid Irritable bowel syndrome on dicyclomine PRN Obesity BMI 39 DVT Px: SCDs Code Status Full Code Admission and Anticipated Discharge Date Admission Date: May 13, 2022 Subjective Patient is seen and examined at bedside Patient has pleuritic/reproducible chest discomfort Also reports chronic orthopnea and dyspnea on exertion Denies any dizziness, nausea, abdominal pain Discussed with cardiology today No other complaints Review of Systems Review of Systems: All systems reviewed & are unremarkable except as noted in Subjective Physical Exam Physical Exam: Physical Exam: Vitals signs as noted above General Appearance:Obese, no apparent distress Head: normocephalic, Atraumatic Eyes: normal inspection, EOMI Neck: supple, Trachea midline Respiratory/Chest: Normal breath sounds, CTA, +Reproducible, No accessory muscle use Cardiovascular: S1, S2, + murmur Abdomen/GI:Soft, Non tender, Bowel sounds present Extremities/Musculoskeletal:normal inspection, no edema Neurologic/Psych:AAOX3, grossly no focal neurological deficits Skin: normal color, warm Results & Data Results & Data ([facility]) Vital Signs (Past 12 Hours) Vital Signs Temp Pulse Pulse Resp BP BP BP 05/13/22 11:28 57 L 18 120/68 05/13/22 07:57 37.1 C 58 L 18 133/74 05/13/22 03:41 71 05/13/22 04:21 61 18 137/78 05/13/22 02:30 68 18 05/13/22 02:00 91 H 18 135/77 Pulse Ox O2 Del Method 05/13/22 11:28 95 Room Air 05/13/22 07:57 98 Room Air 05/13/22 03:41 05/13/22 04:21 96 Room Air 05/13/22 02:30 94 05/13/22 02:00 93 Laboratory Results Short CBC 05/12/22 05/13/22 Range/Units 17:58 05:28 WBC 7.30 7.84 (4.8-10.8) K/ul Hgb 13.0 12.2 (12.0-16.0) g/dl Hct 37.3 35.0 (34.1-44.9) % Plt Count 328 316 (130-400) K/uL BMP 05/12/22 05/13/22 17:58 05:28 Sodium 141 141 Potassium 3.2 L 3.5 Chloride 105 106 Carbon Dioxide 30 29 BUN 15 16 Creatinine 0.71 0.71 Glucose 127 H 104 H Calcium 9.7 9.3 Liver Function 05/12/22 Range/Units 17:58 Total Bilirubin 0.6 (0.2-1.0) mg/dl AST 17 (13-39) U/L ALT 15 (7-52) U/L Alkaline Phosphatase 66 (34-104) U/L Albumin 4.3 (3.4-5.0) gm/dl (1) Chest pain Chest pain type: unspecified Qualified Code(s): R07.9 - Chest pain, unspecified
--- NOTE | 2022-05-13 13:52 | Discharge Summary ---
Date of Service May 13, 2022 Admission HPI Per Admitting Provider CHIEF COMPLAINT: Chest pain. HISTORY OF PRESENT ILLNESS: A 47-year-old female with past medical history significant for dyspnea on exertion, recurrent sinusitis, history of hypertension, morbid obesity, irritable bowel syndrome, female stress incontinence, history of right lower quadrant abdominal pain, iron deficiency anemia, obsessive compulsive disorder, depression, history of COVID-19, presents with chest pain. The patient says since yesterday morning, she is having chest pain in the left side of the chest radiating to the back and left shoulder and arm, dull aching pain 6/10 in severity. No nausea, somewhat dizziness. No shortness of breath, no cough, no fever, no chills, no blurred visions, no earache, no runny nose. Currently, has some mild headache. No abdominal pain. Normal bladder and bowel movements. Resting comfortably and hemodynamically stable. Also has what looks like a chronic abdominal discomfort. Admission Exam Per Admitting Provider PHYSICAL EXAMINATION: GENERAL: The patient is obese, not in acute distress. VITAL SIGNS: Temperature 37, pulse 66, respiratory rate 21, blood pressure 144/74, oxygen 98%. HEENT: Pupils equal, round and reactive to light. Oral mucosa moist. NECK: No JVD. No neck masses. CARDIOVASCULAR: S1 and S2 heard. Regular rate and rhythm. No murmur, no gallop. RESPIRATORY SYSTEM: Normal AP diameter. No accessory muscle use. No wheezing, crackles. ABDOMEN: Soft, bowel sounds present. Mild discomfort in periumbilical region. No guarding, no rigidity, no distention. CENTRAL NERVOUS SYSTEM: Cranial nerves II-XII grossly intact, nonfocal. EXTREMITIES: No edema, no erythema. Principal Diagnosis Atypical Chest Pain Hypokalemia Discharge Data Allergies Allergy/AdvReac Type Severity Reaction Status Date / Time clavulanic acid Allergy Intermediate ITCHING Verified 05/13/22 00:15 latex Allergy Intermediate rash all Verified 05/13/22 00:15 over body amoxicillin Allergy Mild stomach Verified 05/13/22 00:15 problems/slight itching oxycodone Allergy Mild stomach Verified 05/13/22 00:15 problems Consultations 05/12/22 22:42 ED Decision to Admit Stat 05/13/22 08:00 Consult Cardiology Routine Procedures Performed Laboratory Results WBC 7.84 K/ul (4.8-10.8) 05/13/22 05:28 RBC 4.10 M/uL (3.93-5.22) 05/13/22 05:28 Hgb 12.2 g/dl (12.0-16.0) 05/13/22 05:28 Hct 35.0 % (34.1-44.9) 05/13/22 05:28 MCV 85.4 fL (80.0-100.0) 05/13/22 05:28 MCH 29.8 pg (25.0-34.0) 05/13/22 05:28 MCHC 34.9 g/dL (32.0-36.0) 05/13/22 05: RDW Std Deviation 35.5 fL (36.4-46.3) L 05/13/22 05:28 RDW Coeff of Krystina 11.5 % (11.5-14.5) 05/13/22 05:28 Plt Count 316 K/uL (130-400) 05/13/22 05:28 MPV 10.3 fL (9.4-12.3) 05/13/22 05:28 Immature Gran % (Auto) 0.8 % 05/13/22 05:28 Neut % (Auto) 71.9 % 05/13/22 05:28 Lymph % (Auto) 14.5 % 05/13/22 05:28 Russell % (Auto) 10.2 % 05/13/22 05:28 Eos % (Auto) 1.8 % 05/13/22 05:28 Baso % (Auto) 0.8 % 05/13/22 05:28 Neut # (Auto) 5.64 K/uL (1.4-6.5) 05/13/22 05:28 Lymph # (Auto) 1.14 K/uL (1.2-3.4) L 05/13/22 05:28 Russell # (Auto) 0.80 K/uL (0.24-0.82) 05/13/22 05:28 Eos # (Auto) 0.14 K/uL (0-0.50) 05/13/22 05:28 Baso # (Auto) 0.06 K/uL (0-0.2) 05/13/22 05:28 Immature Gran # (Auto) 0.06 K/uL (0.00-0.02) H 05/13/22 05:28 Sodium 141 mmol/L (136-145) 05/13/22 05:28 Potassium 3.5 mmol/L (3.5-5.1) 05/13/22 05:28 Chloride 106 mmol/L (98-107) 05/13/22 05:28 Carbon Dioxide 29 mmol/L (21-32) 05/13/22 05:28 Anion Gap 6 (3-11) 05/13/22 05:28 BUN 16 mg/dl (6-23) 05/13/22 05:28 Creatinine 0.71 mg/dl (0.6-1.2) 05/13/22 05:28 Est Cr Clr Drug Dosing 129.5 ml/min 05/13/22 05:28 Est GFR ( Amer) 118.4 ml/min 05/13/22 05:28 Est GFR (Non-Af Amer) 102.1 ml/min 05/13/22 05:28 BUN/Creatinine Ratio 22.5 (10-20) H 05/13/22 05:28 Glucose 104 mg/dl (70-99(Fasting)) H 05/13/22 05:28 Calcium 9.3 mg/dl (8.5-10.1) 05/13/22 05:28 Magnesium 1.9 mg/dl (1.7-2.4) 05/13/22 05:28 Total Bilirubin 0.6 mg/dl (0.2-1.0) 05/12/22 17:58 AST 17 U/L (13-39) 05/12/22 17:58 ALT 15 U/L (7-52) 05/12/22 17:58 Alkaline Phosphatase 66 U/L (34-104) 05/12/22 17:58 Troponin I High Sens 2.9 pg/ml (0-14) 05/13/22 11:29 Total Protein 7.0 gm/dl (6.0-8.3) 05/12/22 17:58 Albumin 4.3 gm/dl (3.4-5.0) 05/12/22 17:58 Globulin 2.7 gm/dl (2.5-4.0) 05/12/22 17:58 Albumin/Globulin Ratio 1.6 (0.9-2) 05/12/22 17:58 Lipase 14 U/L (11-82) 05/12/22 17:58 SARS-CoV-2, RNA, NAAT NEGATIVE (NEGATIVE) 05/12/22 22:42 Impressions Chest X-Ray 05/12/22 17:40 XR chest 1V portable CLINICAL HISTORY: Chest pain, nonspecific TECHNIQUE: Single frontal radiograph of the chest was obtained. Comparison: Comparison is made to chest radiograph 02/10/2017 FINDINGS: No lines and tubes are seen. The cardiomediastinal silhouette is normal. The lungs are clear. No evidence of pleural effusion or pneumothorax. IMPRESSION: No acute chest disease. ACT 112: Negative or not required by law. Electronically signed by: Jacob Gold M.D. 05/12/2022 8:03 PM Hospital Course (1) Chest pain: Patient is a 47 yr female who presents with Atypical chest pain Atypical Chest Pain DD: Pleuritic/musculoskeletal in origin -High-sensitivity troponin X3: Negative -CXR:No acute chest disease. -ECHO: Left ventricle is normal in size. Left ventricle systolic function is normal. EF 60 to 65%. Right ventricle systolic function is normal. Left a trial size is normal. Right atrial size is normal. Left ventricle wall motion is normal. Mild aortic regurgitation. Mild Tricuspid regurgitation -May need Cardiac CT with FFR as outpatient -Appreciate Cardiology Input Hypokalemia Replete electrolytes as needed . Hypertension Continue HCTZ, losartan GERD Continue PPI, pepcid Irritable bowel syndrome on dicyclomine PRN Obesity BMI 39 DVT Px: SCDs Code Status Full Code Total Time Total Time Spent Total Time Spent (In Minutes): 49 minutes Discharge Plan Discharge Items Patient Disposition: Home - Self-Care Reason For Visit: CHEST PAIN Discharge Diagnosis: Atypical Chest Pain Hypokalemia Activity: Per Instructions section Exercise/Sports: Gradually increase as tolerated Non-emergency contact: Primary Care Provider Call non-emergency contact if: you have any medication questions, your symptoms worsen, your pain is concerning for you and you have a fever Follow-up/Referrals: Franky Hooks MD [Primary Care Provider] - Diet: Heart Healthy Addtl Attending Provider Instructions: Follow-up with your primary care physician in 1 week Follow-up with your tanker driver if your chest pain does not resolve in 2 to 4 weeks --get Blood test (basic metabolic panel) in 1 week and follow-up with her primary care physician for monitoring low potassium levels. Seek immediate medical attention if your symptoms reoccur or worsen Please take all medications as instructed on discharge list below. Please call if you have any questions or problems. You can reach a [facility] hospitalist on duty at [facility] 24 hours a day by calling [phone] Pending Studies at Discharge: No Stand-Alone Forms: [facility], Smoking Cessation Medications and DC Order Prescriptions: Continued acetaminophen 500 mg Tablet 500 mg PO QID PRN (Reason: Fever Or Pain) triamcinolone acetonide [Aristocort] 0.1 % Cream 1 applic TOPICAL BID PRN (Reason: Skin Irritation) diphenhydramine HCl 25 mg Tablet 25 mg PO QID PRN (Reason: Itching) ketoconazole 2 % Cream 1 applic TOPICAL BID PRN (Reason: .breast rash) metronidazole [Metrogel] 1 % Gel 1 applic TOPICAL BID PRN (Reason: Skin Irritation) multivitamin [Multiple Vitamin] Tablet 1 tab PO DAILY ascorbic acid (vitamin C) 100 mg Tablet 0 mg PO DAILY cetirizine [Zyrtec] 10 mg Tablet 10 mg PO DAILY zolmitriptan [Zomig] 5 mg Tablet 5 mg PO UD PRN (Reason: Migraine Headache) Rx Instructions: take 1 tab at onset of headache; if no relief, may repeat 1 tab after at least 2 hrs; max = 2 tabs/24 hrs dicyclomine 10 mg capsule 10 mg PO ACHS PRN (Reason: Cramps) ondansetron 8 mg Tablet,Disintegrating 8 mg PO Q8H PRN (Reason: Nausea) azelastine 137 mcg (0.1 %) aerosol,spray 2 spray INTRANASAL BID PRN (Reason: Congestion) fluticasone propionate [Flonase] 50 mcg/actuation [place],Suspension 2 spray INTRANASAL DAILY pantoprazole 40 mg tablet,delayed release (DR/EC) 40 mg PO BID diclofenac sodium [Voltaren] 1 % Gel 4 g TOPICAL QID Rx Instructions: apply to affected large joints famotidine 20 mg Tablet 20 mg PO BID hydrochlorothiazide 12.5 mg Capsule 12.5 mg PO QAM losartan 100 mg Tablet 100 mg PO QAM albuterol sulfate 90 mcg/actuation Hfa Aerosol Inhaler 1 inh INHALATION QID PRN (Reason: short of breath) Discharge Orders: Discharge Order (Routine); Ordered 05/13/22 Ordered By: Karlos Costa Admission Data Admit Date/Time: 05/13/22 01:54 Attending Provider: Karlos Costa Admit Provider: Scot Marin Primary Care Provider: Franky Hooks Other Providers: Scot Marin ; Red Gilliam ; Nick Parker ; Kamlesh Caldera ; Bakari Mcduffie ; Ozzy Wilson ; Reji Pratt ; Lolly Madison ; Harriet Dalton ; Jolene Eckert ; Catrachito Farley
[2022-05-13] MEDS: DICLOFENAC SOD 1% GEL 100 GM TUBE EXT SCH (14:07)
--- NOTE | 2022-05-13 14:11 | Electrocardiogram Report ---
Test Reason : Blood Pressure : / mmHG Vent. Rate : 063 BPM Atrial Rate : 063 BPM P-R Int : 148 ms QRS Dur : 094 ms QT Int : 416 ms P-R-T Axes : 062 042 051 degrees QTc Int : 425 ms Normal sinus rhythm Normal ECG When compared with ECG of 10-FEB-2017 20:23, Nonspecific T wave abnormality now evident in Anterior leads Confirmed by Raulito Ferguson ([id number]) on 05/13/2022 11:18:50 AM Referred By: REFERRED SELF Confirmed By:Guero Ferguson
== END 2022-05-13 15:00 | disposition home or self-care (01) ==
LOC: 2N 17:07 → ED 17:07 → 2N 05-13 03:20